=== PATIENT | female | born 1990 | race Caucasian/White ===

== ENCOUNTER 2022-06-16 12:40 | Observation (INO) ==
[2022-06-16] MEDS ORDERED: ASPIRIN 325 MG TABLET PO STA (13:05)
[2022-06-16 13:16] LABS: Basophils # 0.1 10*3/uL (0.0-0.2); Basophils % 0.5 % (0.0-0.8); Eosinophils # 0.1 10*3/uL (0.0-0.87); Hematocrit 40.4 VOL% (35.7-47.0); Hemoglobin 13.2 GM/DL (12.0-16.0); Immature Granulocytes % 0.5 %; Immature Granulocytes Absolute 0.05 #; Lymphocytes # 1.9 10*3/uL (1.4-4.0); Lymphocytes % 17.9 % (21.3-54.2); Mean Corpuscular HGB Conc 32.7 GM/DL (32-36); Mean Platelet Volume 9.9 FL (9.6-12.0); Monocytes # 0.6 10*3/uL (0.11-0.8); Monocytes % 5.5 % (1.7-12.7); Neutrophils % 74.6 % (38.7-73.9); Platelet Count 294 T/CUMM (130-400); Red Blood Count 4.49 MC/CUMM (3.8-5.5); Red Cell Distribution Width 13.5 % (9.3-17.3); White Blood Count 10.3 T/CUMM (4-12)
[2022-06-16 13:34] LABS: Bilirubin,Total 0.5 MG/DL (0.20-1.00); Osmolality,Calculated 274.7 MOS/KG (273-304); Potassium 3.7 MMOL/L (3.5-5.1); Total Protein 7.5 G/DL (6.4-8.2)
[2022-06-16] MEDS: NITROGLYCERIN SL 0.4 MG TABLET SL PRN ×2 (13:40→14:24)
[2022-06-16] MEDS ORDERED: ENOXAPARIN 80 MG/0.8 ML SYRINGE SUBCUT STA (15:17)
[2022-06-16] MEDS ORDERED: DOCUSATE SODIUM 100 MG CAPSULE PO PRN (15:30)
[2022-06-16] MEDS ORDERED: ONDANSETRON 4 MG/2 ML VIAL IV PRN (15:30)
[2022-06-16] MEDS ORDERED: GLUCAGON 1 MG VIAL IM PRN (15:30)
[2022-06-16] MEDS ORDERED: ACETAMINOPHEN 325 MG TABLET PO PRN (15:30)
[2022-06-16] MEDS ORDERED: DEXTROSE 10% 250 ML BAG IV PRN (15:43)
[2022-06-16] MEDS: INSULIN REGULAR 100 UNIT/ML SUBCUT SCH ×2 (16:59→21:41)
[2022-06-16] MEDS: PANTOPRAZOLE 40 MG TABLET PO SCH (17:12)
[2022-06-17 05:26] LABS: Basophils # 0.1 10*3/uL (0.0-0.2); Basophils % 0.6 % (0.0-0.8); Eosinophils # 0.2 10*3/uL (0.0-0.87); Eosinophils % 2.4 % (0.00-10.9); Hematocrit 38.7 VOL% (35.7-47.0); Hemoglobin 12.4 GM/DL (12.0-16.0); Immature Granulocytes % 0.5 %; Immature Granulocytes Absolute 0.04 #; Lymphocytes # 1.9 10*3/uL (1.4-4.0); Lymphocytes % 23.4 % (21.3-54.2); Mean Corpuscular Volume 90.6 FL (87-102); Mean Platelet Volume 10.1 FL (9.6-12.0); Monocytes # 0.5 10*3/uL (0.11-0.8); Monocytes % 6.7 % (1.7-12.7); Neutrophils % 66.4 % (38.7-73.9); Platelet Count 251 T/CUMM (130-400); Red Blood Count 4.27 MC/CUMM (3.8-5.5); Red Cell Distribution Width 13.7 % (9.3-17.3)
[2022-06-17 05:52] LABS: Albumin 3.1 G/DL (3.4-5.0); Bilirubin,Total 0.5 MG/DL (0.20-1.00); Calcium 8.1 MG/DL (8.5-10.1); Osmolality,Calculated 273.8 MOS/KG (273-304); Potassium 3.5 MMOL/L (3.5-5.1); Risk Ratio 6.79; Thyroid Stimulating Hormone 2.49 uIU/ml (0.358-3.74); Total Protein 6.5 G/DL (6.4-8.2); VLDL Cholesterol 52.4 MG/DL
[2022-06-17 06:21] LABS: Hepatitis B Core IgM Quant 0.05 Index; Hepatitis B Surface Ag Quant < 0.10 Index; Hepatitis B Surface Ag Result Non-Reactive (NonReactive); Hepatitis C Virus Ab Quant < 0.02 Index; Hepatitis C Virus Ab Result Non-Reactive (NonReactive)
[2022-06-17] MEDS ORDERED: sitaGLIPtin 100 MG TABLET PO SCH (09:00)
[2022-06-17] MEDS ORDERED: ASPIRIN EC 325 MG TABLET PO SCH (09:00)
[2022-06-17] MEDS ORDERED: DAPAGLIFLOZIN 10 MG TABLET PO SCH (09:00)
[2022-06-17] MEDS ORDERED: METOPROLOL SUCCINATE XL 25 MG TABLET PO SCH (09:00)
[2022-06-17] MEDS ORDERED: LOSARTAN 25 MG TABLET PO SCH (09:00)
[2022-06-17] MEDS: INSULIN REGULAR 100 UNIT/ML SUBCUT SCH ×2 (09:06→13:23)
[2022-06-17] MEDS: PANTOPRAZOLE 40 MG TABLET PO SCH (09:33)
[2022-06-17 14:36] VITALS: BP 104/64
== END 2022-06-17 16:16 | disposition home or self-care (01) ==
LOC: N.TELEN 12:40 → N.ED 12:40 → N.TELEN 16:45
PROVIDERS: ADMIT Hospitalist; ATTEND Hospitalist